=== PATIENT | male | born 1960 | race Caucasian/White ===

== ENCOUNTER 2022-10-13 19:04 | Inpatient (IN) | payer BC ==
[~2022-10-13] VITALS: Ht 177.8 cm; Wt 72.7 kg
[~2022-10-13 19:04] MED LIST: GLIP5TAB26 PO; LISI40TA13 PO; METF-438 PO; PIOG45TA64 PO
[2022-10-14] VITALS (8 sets, daily range): BP systolic 102–137; BP diastolic 41–82
[2022-10-14] MEDS ORDERED: acetaminophen 325mg tablet PO ONE (02:05)
[2022-10-14] MEDS ORDERED: thiamine 100mg/ml 2ml inj. IV ONE (02:05)
[2022-10-14] MEDS ORDERED: normal saline 1000ML IV soln IVB ONE ×2 (02:05→03:05)
[2022-10-14] MEDS ORDERED: ondansetron/PF 4mg/2ml inj IV ONE (02:05)
[2022-10-14 02:26] LABS: BASOPHILS % (AUTO) 0.3 % (0-1); EOSINOPHILS % (AUTO) 0 % (0-6); HEMATOCRIT 37.8 % (42.0-52.0); LYMPHOCYTES # (AUTO) 0.6 X10'3 (1.1-4.8); LYMPHOCYTES % (AUTO) 3.8 % (21-51); MEAN CORPUSCULAR HEMOGLOBIN 28.6 PG (27.0-31.0); MEAN CORPUSCULAR HGB CONC 31.7 g/dL (33.0-36.5); MEAN CORPUSCULAR VOLUME 90.1 FL (78-98); MEAN PLATELET VOLUME 8.4 FL (7.4-10.4); MONOCYTES # (AUTO) 0.8 X10'3 (0-0.9); MONOCYTES % (AUTO) 4.6 % (2-12); NEUTROPHILS # (AUTO) 15.5 X10'3 (1.8-7.7); NEUTROPHILS % (AUTO) 91.3 % (42-75); PLATELET COUNT 240 X10'3 (140-440); RED BLOOD COUNT 4.19 X10'6 (4.70-6.10); WHITE BLOOD COUNT 16.9 X10'3 (4.5-11.0)
[2022-10-14 02:40] LABS: ALANINE AMINOTRANSFERASE 27 U/L (12-78); ALBUMIN 4.1 G/DL (3.4-5.0); ALBUMIN/GLOBULIN RATIO 1.1 (1.1-1.5); ALKALINE PHOSPHATASE 104 IU/L (46-116); ANION GAP 26 (8-16); ASPARTATE AMINO TRANSFERASE 34 U/L (10-37); BILIRUBIN,TOTAL 1.1 MG/DL (0.1-1.0); BLOOD UREA NITROGEN 22 MG/DL (7-18); BUN/CREATININE RATIO 16.4 (5.4-32.0); CALCIUM 9.8 MG/DL (8.5-10.1); CHLORIDE 100 MMOL/L (99-107); CREATININE 1.34 MG/DL (0.60-1.10); ETHANOL 0.017 GM/DL (0.0-0.010); GLUCOSE 244 MG/DL (70-104); LIPASE 322 U/L (73-393); POTASSIUM 4.7 MMOL/L (3.5-5.1); SODIUM 142 MMOL/L (135-145); TOTAL CARBON DIOXIDE 16.1 MMOL/L (24-32); TOTAL PROTEIN 7.8 G/DL (6.4-8.2); eGFR 54 ML/MIN
[2022-10-14] MEDS ORDERED: dextrose 5%-1/2 normal saline 1,000 ML IV ONE (02:55)
[2022-10-14] MEDS ORDERED: LORazepam 2 mg/ml vial IV ONE (02:55)
[2022-10-14] MEDS ORDERED: potassium Cl 40MEQ/1/2NS 520ml 520 ML IV PRN ×2 (03:00→03:05)
[2022-10-14] MEDS ORDERED: magnesium 4gm in 100ml NS 100 ML IV PRN ×2 (03:00→03:05)
[2022-10-14] MEDS ORDERED: magnesium Cl slow-release 64mg tablet PO PRN ×2 (03:00→03:05)
[2022-10-14] MEDS ORDERED: potassium Cl 20 mEq SR tablet PO PRN ×3 (03:00→03:05)
[2022-10-14] MEDS ORDERED: pantoprazole 40mg IV 80 MG in normal saline 100ml IV soln 100 ML IV ONE ×2 (03:05→06:25)
[2022-10-14] MEDS ORDERED: ondansetron/PF 4mg/2ml inj IV PRN (03:05)
[2022-10-14] MEDS ORDERED: pantoprazole 40MG/NS 100ML BAG 100 ML IV SCH ×2 (03:07→04:00)
[2022-10-14 03:16] LABS: TOTAL CELLS COUNTED 100
[2022-10-14 03:17] LABS: ANISOCYTOSIS 3+; PLATELET ESTIMATE NORMAL
[2022-10-14 03:18] LABS: ELLIPTOCYTES FEW
[2022-10-14] MEDS: normal saline 1000ml 1,000 ML IV SCH ×3 (03:49→08:08)
--- NOTE | 2022-10-14 04:15 | NUR ---
PT. APPEARS LESS ANXIOUS AND DECREASE IN HAND TREMORS AFTER ATIVAN GIVEN PER ORDERS.
[2022-10-14 07:01] LABS: CLARITY,URINE CLEAR (Clear); COLOR,URINE YELLOW (Yellow); GLUCOSE, URINE NEGATIVE (Neg); KETONES,URINE >=80 mg/dl (Neg); LEUKOCYTE ESTERASE ,URINE NEGATIVE (Neg); NITRITES, URINE NEGATIVE (Neg); OCCULT BLOOD,URINE NEGATIVE (Neg); PH,URINE 5.5 (4.8-8.0); PROTEIN,URINE NEGATIVE (Neg); UROBILINOGEN,URINE 0.2 E.U/dL (0.2-1.0)
[2022-10-14 07:13] LABS: UA COLLECTION TYPE CLN CATCH MIDSTREAM
[2022-10-14] MEDS: K and/or MAG REPLACEMENT MC SCH ×2 (08:00→19:13)
[2022-10-14] MEDS ORDERED: K and/or MAG REPLACEMENT MC SCH (08:00)
[2022-10-14] MEDS ORDERED: dextrose 50%-water 50ml dispensing syringe IV PRN (11:40)
[2022-10-14] MEDS ORDERED: haloperidol lactate 5mg/ml inj IM PRN (11:40)
[2022-10-14] MEDS ORDERED: haloperidol 5mg tablet PO PRN (11:40)
[2022-10-14] MEDS ORDERED: LORazepam 2 mg/ml vial IV PRN (11:40)
[2022-10-14] MEDS ORDERED: HYDR-3972 PO (12:33)
[2022-10-14] MEDS ORDERED: METO-384 PO (12:33)
[2022-10-14] MEDS ORDERED: MIDAZolam 1 MG/ML 5ML VIAL ONE (12:55)
[2022-10-14] MEDS ORDERED: fentaNYL/PF 50MCG/1 ML 2ML syringe ONE (12:56)
[2022-10-14] MEDS ORDERED: LIDOcaine Viscous 15ml cup ONE (12:56)
[2022-10-14] MEDS: thiamine 100mg/ml 2ml inj. IV SCH ×2 (13:00→19:12)
--- NOTE | 2022-10-14 13:44 | NUR ---
Malnutrition consult: Pt reports 14-23 lb wt loss with decreased appetite per malnutrition risk screen with RN. Attempted visit with pt at bedside however pt being taken to GI lab. No visible fat or muscle wasting was appreciated. Pt with no documented decrease in muscle strength or edema. Pt currently NPO. Per ED report pt reports experiencing N/V the beginning of yesterday (10/13), unlikely that pt lost such a significant amount of wt in that short time period. Noted pt recently admitted (09/01) and denied wt loss or decreased appetite at that time. Pt currently lacks a minimum of two criteria for malnutrition though will continue to monitor qualifying malnutrition criteria. Per EMR pt with T2DM, most recent A1c 9.0% 09/01, pt seen by RD 09/02 and provided with written and verbal DM education with RD contact information. No further DM education planned at this time. Will continue to follow. Addendum: 10/14/22 at [address] Amended: Links added.
--- NOTE | 2022-10-14 15:41 | NUR ---
Pt back for EGD. VSS, Clear liquids given, hooked back to IV.
[2022-10-14 16:20] LABS: HEMATOCRIT 30.6 % (42.0-52.0); HEMOGLOBIN 10.1 g/dl (14.0-17.9); MEAN CORPUSCULAR HEMOGLOBIN 29.5 PG (27.0-31.0); MEAN CORPUSCULAR VOLUME 89.6 FL (78-98); PLATELET COUNT 153 X10'3 (140-440); RED BLOOD COUNT 3.41 X10'6 (4.70-6.10); RED CELL DISTRIBUTION WIDTH 21.4 % (11.5-14.5); WHITE BLOOD COUNT 7.2 X10'3 (4.5-11.0)
[2022-10-14] MEDS: pantoprazole 40MG/NS 100ML BAG 100 ML IV SCH (19:12)
[2022-10-15 03:21] VITALS: BP 97/60
[2022-10-15 06:00] VITALS: BP 110/64
--- NOTE | 2022-10-15 06:05 | NUR ---
Patient in beed with the head of the bed in a semi-fowlers position. Patient resting with his eyes closed. Call light within reach and all personal belongings within reach.
[2022-10-15 06:40] LABS: BASOPHILS % (AUTO) 0.3 % (0-1); EOSINOPHILS % (AUTO) 0.1 % (0-6); HEMATOCRIT 31.1 % (42.0-52.0); HEMOGLOBIN 10.3 g/dl (14.0-17.9); MEAN CORPUSCULAR HEMOGLOBIN 29.5 PG (27.0-31.0); MEAN CORPUSCULAR HGB CONC 33.3 g/dL (33.0-36.5); MEAN CORPUSCULAR VOLUME 88.8 FL (78-98); MEAN PLATELET VOLUME 8.4 FL (7.4-10.4); MONOCYTES # (AUTO) 0.6 X10'3 (0-0.9); MONOCYTES % (AUTO) 10.9 % (2-12); NEUTROPHILS # (AUTO) 2.7 X10'3 (1.8-7.7); NEUTROPHILS % (AUTO) 51.7 % (42-75); PLATELET COUNT 141 X10'3 (140-440); RED CELL DISTRIBUTION WIDTH 21.4 % (11.5-14.5); WHITE BLOOD COUNT 5.3 X10'3 (4.5-11.0)
[2022-10-15 06:53] LABS: ALANINE AMINOTRANSFERASE 25 U/L (12-78); ALBUMIN 2.8 G/DL (3.4-5.0); ALBUMIN/GLOBULIN RATIO 1.1 (1.1-1.5); ALKALINE PHOSPHATASE 67 IU/L (46-116); AMYLASE 101 U/L (25-115); ANION GAP 7 (8-16); ASPARTATE AMINO TRANSFERASE 38 U/L (10-37); BILIRUBIN,TOTAL 1.4 MG/DL (0.1-1.0); BLOOD UREA NITROGEN 14 MG/DL (7-18); BUN/CREATININE RATIO 15.6 (5.4-32.0); CALCIUM 7.5 MG/DL (8.5-10.1); CHLORIDE 106 MMOL/L (99-107); GLUCOSE 195 MG/DL (70-104); LIPASE 166 U/L (73-393); MAGNESIUM 1.2 MG/DL (1.5-2.4); PHOSPHORUS 2.1 MG/DL (2.3-4.5); POTASSIUM 3.4 MMOL/L (3.5-5.1); SODIUM 140 MMOL/L (135-145); TOTAL CARBON DIOXIDE 26.8 MMOL/L (24-32); TOTAL PROTEIN 5.3 G/DL (6.4-8.2); eGFR 85 ML/MIN
[2022-10-15] MEDS ORDERED: folic acid 1mg/0.2ml inj IV SCH (08:00)
[2022-10-15] MEDS: K and/or MAG REPLACEMENT MC SCH (08:00)
[2022-10-15] MEDS: thiamine 100mg/ml 2ml inj. IV SCH ×2 (08:51→12:51)
[2022-10-15] MEDS: pantoprazole 40MG/NS 100ML BAG 100 ML IV SCH (08:51)
[2022-10-15] MEDS: potassium Cl 20 mEq SR tablet PO PRN ×2 (08:54→15:11)
[2022-10-15] MEDS: normal saline 1000ml 1,000 ML IV SCH (09:11)
[2022-10-15] MEDS ORDERED: iohexol 300mg/ml 100ml inj. ONE (10:40)
[2022-10-15 11:00] VITALS: BP 128/63
[2022-10-15] MEDS ORDERED: MESSAGE TO PHARMACY PO ONE (11:50)
[2022-10-15] MEDS ORDERED: dextrose 50%-water 50ml dispensing syringe IV PRN ×2 (11:50)
[2022-10-15] MEDS ORDERED: insulin Lispro (HumaLOG) vial - multi-dose SQ SCH (11:50)
[2022-10-15] MEDS ORDERED: glucagon, human recombinant 1mg kit SUBCUT PRN (11:50)
[2022-10-15] MEDS ORDERED: DEXTROSE 15 GM of carb/4 tabs (each vial/BOTTLE has 4 tablets) PO PRN ×2 (11:50)
[2022-10-15 15:00] VITALS: BP 132/63
--- NOTE | 2022-10-15 15:05 | NUR ---
PAGER ID: [phone] MESSAGE: [phone] RE: Mike Tita room 3014B - Pt is asking if we can advance diet to solids. CT not resulted
[2022-10-15] MEDS ORDERED: FOLI1TAB27 PO (16:20)
[2022-10-15] MEDS ORDERED: thiamine tablet PO (16:20)
[2022-10-15] MEDS ORDERED: PANT-47 PO (16:20)
--- NOTE | 2022-10-15 18:37 | NUR ---
Patient was discharged with instructions, verbalizing understanding of instructions, in wheelchair accompanied by nursing staff going home via private vehicle. All lines and tubes including PIV with cannula intact and tele monitor were removed. Education has been provided at bedside and all questions have been answered. Patient is stable and appropriate for discharge.
[2022-10-15] MEDS ORDERED: insulin glargine (Lantus) pen - multi-dose SQ SCH (21:00)
[2022-10-16] MEDS ORDERED: LORazepam 1 MG tablet PO PRN (11:40)
[2022-10-16] MEDS ORDERED: LORazepam 2 mg/ml vial IV PRN (11:40)
[2022-10-18] MEDS ORDERED: thiamine 100mg tablet PO SCH (08:00)
[2022-10-18] MEDS ORDERED: LORazepam 2 mg/ml vial IV PRN (11:40)
[2022-10-18] MEDS ORDERED: LORazepam 1 MG tablet PO PRN (11:40)
[2022-10-19] MEDS ORDERED: folic acid 1mg tablet PO SCH (08:00)
== END 2022-10-15 18:30 | disposition home or self-care (01) | DRG 368 ==
LOC: ER 19:07 → ED HOLD 10-14 03:04 → PCU 3S 10-14 07:21
PROVIDERS: ADMIT Internal Medicine; ATTEND Family Medicine
PROC: 0DB58ZX Excision of Esophagus, Via Natural or Artificial Opening Endoscopic, Diagnostic (ICD-10-PCS; principal; 2022-10-14)
PROC: 0DB78ZX Excision of Stomach, Pylorus, Via Natural or Artificial Opening Endoscopic, Diagnostic (ICD-10-PCS; 2022-10-14)
PROC: BW211ZZ Computerized Tomography (CT Scan) of Abdomen and Pelvis using Low Osmolar Contrast (ICD-10-PCS; 2022-10-15)
DX: K21.01 Gastro-esophageal reflux disease with esophagitis, with bleeding (principal); N17.0 Acute kidney failure with tubular necrosis; D62 Acute posthemorrhagic anemia; E87.20 Acidosis, unspecified; F10.230 Alcohol dependence with withdrawal, uncomplicated; K86.0 Alcohol-induced chronic pancreatitis; K86.3 Pseudocyst of pancreas; K29.70 Gastritis, unspecified, without bleeding; D72.829 Elevated white blood cell count, unspecified; E11.9 Type 2 diabetes mellitus without complications; F17.210 Nicotine dependence, cigarettes, uncomplicated; G89.29 Other chronic pain; I10 Essential (primary) hypertension; K22.70 Barrett's esophagus without dysplasia; K44.9 Diaphragmatic hernia without obstruction or gangrene; Y90.0 Blood alcohol level of less than 20 mg/100 ml; Z79.84 Long term (current) use of oral hypoglycemic drugs; Z79.899 Other long term (current) drug therapy
CPT/HCPCS: 36415; 43239; 74178; 80053; 80320; 81003; 82150; 82948; 83690; 83735; 84100; 84145; 85007; 85025; 85027; 85610; 86885; 86900; 86901; 87081; 96361; 96374; 96375; 99152; 99285; A4620; C9113; G0378; J1815; J2060; J2250; J2405; J3010; J3411; J3490; J7030; J7042; Q9967